=== PATIENT | female | born 1940 | race Caucasian/White ===

== ENCOUNTER 2024-03-07 13:54 | Inpatient (IN) ==
--- NOTE | 2024-03-07 14:02 | ED.PDOC ---
General ED Provider: Dr. RAPHAEL HANSEN MD Chief Complaint: Altered Mental Status Stated Complaint: Patient is an 84-year-old female that reported to the emergency department for a fall. Patient's family stated the patient was found down on her hands and knees. They did not know how long she had been down. She stated that she was going to the bathroom when she fell. They stated that the patient has been like this previously when she had a bad UTI. There is an unknown loss of consciousness. Patient denied any chest pain, shortness of breath, nausea, vomiting, diarrhea, abdominal pain, back pain, or any other acute symptoms not currently mentioned in the HPI. GCS 15 Time Seen by Provider: 03/07/24 13:56 Mode of Arrival: Wheelchair Information Source: Patient and Family Exam Limitations: No limitations Primary Care Provider: GOMEZ GRIMES MD Nursing and Triage Documentation Reviewed and Agree: Yes Does Patient Take Opioids?: No Is Patient Opioid Naive?: No What is Opioid Naive?: *Opioid Naive implies the patient is not already taking opioids or not chronically receiving opioids on a daily basis. *PRN dosing is not "usually" associated with tolerance. *Patients are at higher risk of over-sedation and aspiration. Is Patient Opioid Tolerant?: No What is Opioid Tolerant?: *Opioid Tolerance implies less than the expected response to an opioid. *Acquired tolerance is defined by the patient taking 60mg of oral morphine daily (or equianalgesic dose of another opioid) for 1 week or more. *Often associated with chronic pain. *May take more than usual dose to achieve desired pain control. Review of Systems Review Of Systems Constitutional: Reports No symptoms Eyes: Reports No symptoms Ears, Nose, Mouth, Throat: Reports No symptoms Respiratory: Reports No symptoms Cardiac: Reports No symptoms GI: Reports No symptoms : Reports Dysuria Musculoskeletal: Reports No symptoms Skin: Reports No symptoms Neurological: Reports No symptoms Endocrine: Reports No symptoms Hematologic/Lymphatic: Reports No symptoms All Other Systems: Reviewed and Negative [facility] Medical History History of COVID-19 04/16 Z86.16 - Personal history of COVID-19 (ICD-10) Family History FATHER No problems noted. Mother Cancer Cardiac abnormality Social History Smoking and tobacco status: Former smoker How long ago did patient quit smokin years ago Alcohol intake: former Year quit: 1989 Substance use type: does not use Special karl needs: No Agree to transfusion: Yes Adopted: No Caregiver/support person: No Foster care: No Household members: children Housing: house Marital status: W / Lives independently: Yes Daycare: no daycare Number of children: 6 service: No custodial: No Current occupational status: retired Pets and animals: Yes History of recent travel: No Do you think of yourself as: straight/heterosexual Current gender identity: female Seatbelt use: always Drives intoxicated or rides with intoxicated electric truck driver: No Water heater temperature set < 120 degrees: Yes Working smoke detector in home: Yes Fire extinguisher in home: Yes Carbon monoxide detector in home: No Firearms in home: No Physical Exam Physical Exam Appearance: Reports Well-appearing, No pain distress and Well-nourished Ill-appearing: None Pain Distress: None Eyes: Reports BOBBY, EOMI and Conjunctiva clear ENT: Reports Ears normal, Nose normal and Oropharynx normal Neck: Supple Respiratory: Reports Airway patent, Breath sounds clear, Breath sounds equal and Respirations nonlabored Cardiovascular: Reports RRR, Pulses normal, No rub and No murmur GI/: Reports Soft, Nontender, No masses, Bowel sounds normal and No Organomegaly Musculoskeletal: Reports Normal strength, ROM intact, No edema and No calf tenderness Skin: Reports Warm, Dry and Normal color Neurological: Reports Sensation intact, Motor intact, Reflexes intact, Cranial nerves intact, Alert and Oriented Psychiatric: Reports Affect appropriate and Mood appropriate Course Course 03/07/24 14:52 03/07/24 14:52 Orders, Labs, Meds: Lab Review 03/07/24 03/07/24 03/07/24 14:49 14:52 15:45 WBC 6.39 RBC 3.82 L Hgb 11.8 L Hct 35.8 L MCV 93.7 MCH 30.9 MCHC 33.0 RDW Coeff of Mitali 13.2 Plt Count 197 Immature Gran % (Auto) 0.2 Neut % (Auto) 52.6 Lymph % (Auto) 34.4 [place] % (Auto) 10.6 H Eos % (Auto) 1.3 Baso % (Auto) 0.9 Neut # (Auto) 3.4 Lymph # (Auto) 2.2 [place] # (Auto) 0.7 Eos # (Auto) 0.1 Baso # (Auto) 0.1 Immature Gran # (Auto) 0.0 Puncture Site L bach Base Excess -1.2 O2 Saturation 98.7 H ABG pH 7.48 H ABG pCO2 30.0 L ABG pO2 113.0 H ABG HCO3 22.3 ABG Total CO2 23.2 Hemoglobin 1.3 Oxyhemoglobin 95.6 Carboxyhemoglobin 2.2 H Total Hemoglobin 12.3 FiO2 % 21.0 Sodium 138.2 Potassium 4.01 Chloride 108.4 H Carbon Dioxide 19.5 L Anion Gap 14.31 BUN 27.4 H Creatinine 1.06 Estimated GFR (MDRD) 50.00 BUN/Creatinine Ratio 25.84 Glucose 86.9 Lactic Acid 0.61 L Calcium 9.74 Total Bilirubin 0.40 AST 32.7 ALT 8.1 Alkaline Phosphatase 56.8 Total Creatine Kinase 43.3 Troponin I < 0.012 Total Protein 7.30 Albumin 4.60 Globulin 2.70 Albumin/Globulin Ratio 1.70 Urine Color Urine Clarity Urine pH Ur Specific [place] Urine Protein Urine Glucose (UA) Urine Ketones Urine Blood Urine Nitrite Urine Bilirubin Urine Urobilinogen Ur Leukocyte Esterase Urine Microscopic RBC Urine Microscopic WBC Ur Squamous Epith Cells Ur Renal Epithelial Cell Urine Bacteria SARS CoV-2 RNA Rapid SILVINA Negative 03/07/24 16:10 WBC RBC Hgb Hct MCV MCH MCHC RDW Coeff of Mitali Plt Count Immature Gran % (Auto) Neut % (Auto) Lymph % (Auto) [place] % (Auto) Eos % (Auto) Baso % (Auto) Neut # (Auto) Lymph # (Auto) [place] # (Auto) Eos # (Auto) Baso # (Auto) Immature Gran # (Auto) Puncture Site Base Excess O2 Saturation ABG pH ABG pCO2 ABG pO2 ABG HCO3 ABG Total CO2 Hemoglobin Oxyhemoglobin Carboxyhemoglobin Total Hemoglobin FiO2 % Sodium Potassium Chloride Carbon Dioxide Anion Gap BUN Creatinine Estimated GFR (MDRD) BUN/Creatinine Ratio Glucose Lactic Acid Calcium Total Bilirubin AST ALT Alkaline Phosphatase Total Creatine Kinase Troponin I Total Protein Albumin Globulin Albumin/Globulin Ratio Urine Color Yellow Urine Clarity Clear Urine pH 5.5 Ur Specific [place] 1.010 Urine Protein Negative Urine Glucose (UA) Negative Urine Ketones Negative Urine Blood Negative Urine Nitrite Positive H Urine Bilirubin Negative Urine Urobilinogen 0.2 Ur Leukocyte Esterase 1+ H Urine Microscopic RBC 2-5 Urine Microscopic WBC 10-20 Ur Squamous Epith Cells 0-2 Ur Renal Epithelial Cell 0-2 Urine Bacteria 2+ SARS CoV-2 RNA Rapid SILVINA Orders Category Date Time Status OBSERVATION [PLACE PATIENT OBSERVATION] .TO MEDSUR ADMISSION 03/07/24 16:22 Active (MONITORED BED) ABG DRAW REQUEST Stat CARDIO 03/07/24 14:35 Completed EKG-(ED ONLY) Stat CARDIO 03/07/24 13:56 Completed NPO REMINDER: IMAGING ONCE CARE 03/07/24 14:38 Completed NPO REMINDER: IMAGING ONCE CARE 03/07/24 14:41 Completed TELEMETRY MONITORING TELE CARE 03/07/24 16:22 Active [place] [ED CATHETER INSERTION AND CARE] .ONCE EMERGENCY 03/07/24 15:37 Active ABG COOX Stat LAB 03/07/24 14:49 Completed BLOOD CULTURE (ED ONLY) Stat LAB 03/07/24 15:00 Received CBC W/ AUTO DIFF Stat LAB 03/07/24 14:52 Completed CMP [COMPREHENSIVE METABOLIC PANEL] Stat LAB 03/07/24 14:52 Completed COVID [SARS COV-2 RNA RAPID SILVINA] Stat LAB 03/07/24 15:45 Completed CREATINE KINASE Stat LAB 03/07/24 14:52 Completed LACTIC ACID Stat LAB 03/07/24 14:52 Completed TROPONIN I Stat LAB 03/07/24 14:52 Completed URINALYSIS C & S IF INDICATED Stat LAB 03/07/24 16:10 Completed URINE CULTURE Stat LAB 03/07/24 16:29 Received Ceftriaxone 1 gm Vial [Rocephin 1 gm Vial] Meds 03/07/24 16:30 Once 1 gm IVP ONCE ONE Sodium Chloride 0.9% [Sodium Chloride] 1,000 ml Meds 03/07/24 13:[address] ABDOMEN/PELVIS W CONTRAST Stat RADS 03/07/24 14:[address] CERVICAL SPINE W/O CONTRAST Stat RADS 03/07/24 14:[address] CHEST W/CONTRAST Stat RADS 03/07/24 14:[address] HEAD W/O CONTRAST Stat RADS 03/07/24 14:35 Completed Medications Discontinued Medications Generic Name Dose Route Start Last Admin Trade Name Freq PRN Reason Stop Dose Admin Sodium Chloride 1,000 mls @ 1,000 mls/hr 03/07/24 13:57 03/07/24 15:35 Sodium Chloride IV 03/07/24 14:56 1,000 mls/hr BOLUS ONE Administration Vital Signs: Temp Pulse Resp BP Pulse Ox 03/07/24 14:18 98.0 F 63 20 175/91 H 98 Discharge Plan Discharge Patient Disposition: PLACED OBSERVATION Discharge Problem: AMS (altered mental status) Qualifiers: Altered mental status type: unspecified Qualified Code(s): R41.82 - Altered mental status, unspecified Fall Qualifiers: Encounter type: initial encounter Qualified Code(s): W19.XXXA - Unspecified fall, initial encounter Urinary tract infection Qualifiers: Urinary tract infection type: acute cystitis Hematuria presence: without hematuria Qualified Code(s): N30.00 - Acute cystitis without hematuria Did you review [place] RN ONCOLOGY CLINICAL for ALL controlled substances?: Not Applicable ED Provider: RAPHAEL HANSEN Condition: Stable Physician Progress Note: Patient is an 84-year-old female that reported to the emergency department for a fall. Patient's family stated the patient was found down on her hands and knees. They did not know how long she had been down. She stated that she was going to the bathroom when she fell. They stated that the patient has been like this previously when she had a bad UTI. There is an unknown loss of consciousness. Patient denied any chest pain, shortness of breath, nausea, vomiting, diarrhea, abdominal pain, back pain, or any other acute symptoms not currently mentioned in the HPI. -GCS 15. -Will order EKG, trop, CPK, UA, and baseline labs. -Due to patient's fall with unknown downtime will order CT of the head, CT cervical spine, CT chest with contrast, CT abdomen pelvis with contrast. -IV NS 1 L bolus. -EKG shows normal sinus rhythm with a rate of [address] elevations noted. Patient has a left axis deviation. EKG was interpreted by the ER physician. -Patient CBC shows anemia of chronic disease. H&H is hemoglobin 11.8 and hematocrit 35.8. Patient's CMP shows a's carbon dioxide of 19.5 and a BUN of 27. Patient appears to be dehydrated. -Patient's ABG shows a pH 7.48, pCO2 30, pO2 113, bicarb 22.3, carboxyhemoglobin slightly elevated at 2.2. I asked the family if the patient had any gas utilities or a gas heater on in the house and they stated that she does not have any of the above. Patient's son lives at the house with her and states that he has been completely fine. He stated that he has not left the house in 3 days and has been with her. -CT of the head shows no acute intercranial bleed or acute pathology. -CT of the cervical spine shows no acute fractures or dislocations. Degenerative joint disease noted. -CT of the chest shows No acute traumatic injury to the chest. -CT of the abdomen pelvis shows no acute traumatic abdominal changes. Moderate right hydronephrosis with no obstruction noted. Stable bilateral renal cyst noted.Small hiatal hernia present. -Patient has a leukocyte Estrace positive and nitrite positive urinary tract infection on UA. Will give IV Rocephin 1 g. -([id number]) spoke to hospitalist at [facility] who has agreed admit the patient for dehydration and altered mental status. The patient's vital signs are stable at time of admission for observation. Hospitalist has been made aware of current treatment.
[2024-03-07 14:55] LABS: ABG O2 HGB 95.6 % (95-100); ABG PH 7.48 (7.35-7.45); BEecf -1.2 (-2.0-3.0); COHb 2.2 (0.5-1.5); HCO3 22.3 (21-28); MetHb 1.3 (0-1.5); TCO2 23.2 (19-24); sO2 98.7 % (94-98); tHb 12.3 g/dl (11.7-17.4)
[2024-03-07 14:58] LABS: BASOPHILS # (AUTO) 0.1 K/uL (0-0.2); BASOPHILS % (AUTO) 0.9 % (0.0-3.0); EOSINOPHILS # (AUTO) 0.1 K/ul (0.0-0.7); EOSINOPHILS % (AUTO) 1.3 % (0.0-7.0); HEMATOCRIT 35.8 % (37.0-47.0); HEMOGLOBIN 11.8 g/dl (12.0-16.0); IMMATURE GRANULOCYTE % (AUTO) 0.2 % (0.0-5.0); LYMPHOCYTES # (AUTO) 2.2 K/uL (0.60-3.4); LYMPHOCYTES % (AUTO) 34.4 (10.0-50.0); MEAN CORPUSCULAR HEMOGLOBIN 30.9 pg (27.0-31.0); MEAN CORPUSCULAR VOLUME 93.7 fl (81.0-99.0); MONOCYTES # (AUTO) 0.7 K/uL (0.4-2.0); MONOCYTES % (AUTO) 10.6 (0-10); NEUTROPHILS # (AUTO) 3.4 K/ul (2.0-6.9); NEUTROPHILS % (AUTO) 52.6 % (42.2-75.2); PLATELET COUNT 197 10^3/uL (140-440); RDW COEFFICIENT OF VARIATION 13.2 % (11.6-14.8); RED BLOOD COUNT 3.82 10^6/ul (4.20-5.40); WHITE BLOOD COUNT 6.39 K/ul (4.6-10.2)
[2024-03-07 15:10] LABS: ALANINE AMINOTRANSFERASE 8.1 U/L (0-35); ALKALINE PHOSPHATASE 56.8 U/L (53-141); ASPARTATE AMINO TRANSFERASE 32.7 U/L (14-36); BLOOD UREA NITROGEN 27.4 mg/dL (7-17); CALCIUM 9.74 mg/dL (8.4-10.2); CARBON DIOXIDE 19.5 mmol/L (22-30.0); CHLORIDE 108.4 mmol/L (98-107); CREATINE KINASE 43.3 U/L (30-135); CREATININE 1.06 mg/dL (0.60-1.30); GLUCOSE 86.9 mg/dL (74-106); POTASSIUM 4.01 mmol/L (3.5-5.1); SODIUM 138.2 mmol/L (134.5-145)
[2024-03-07 15:23] LABS: TROPONIN I < 0.012 ng/ml (0.0000-0.120)
[2024-03-07] MEDS: SODIUM CHLORIDE 1,000 ML IV ONE (15:35)
--- NOTE | 2024-03-07 15:38 | CT ---
EXAM: BRAIN CT WITHOUT CONTRAST 03/07/2024 INDICATION: Altered mental status. COMPARISON: MRI brain 09/21/2021. TECHNIQUE: Unenhanced CT of the head was performed from the skull base to the vertex. FINDINGS: No intracranial hemorrhage or extra-axial collection. No mass, mass effect or midline shift. The rich -white matter differentiation is preserved. Cerebral volume loss. There are patchy subcortical and p eriventricular white matter hypodensities, most commonly seen in chronic white matter microvascular i schemic changes. The ventricles are normal in size for age. The basal cisterns are patent. Opacifi cation of the underpneumatized bilateral mastoid air cells. The orbits are unremarkable. The visuali zed osseous structures are unremarkable. Frontoparietal hyperostosis. IMPRESSION: - No acute intracranial hemorrhage or mass effect. MRI can be obtained for further evaluation as clin ically indicated. - Senescent changes. All CT scans are performed using dose optimization techniques as appropriate to the performed exam an d include at least one of the following: Automated exposure control, adjustment of the mA and/or kV according t o size, and the use of iterative reconstruction technique.
--- NOTE | 2024-03-07 15:40 | CT ---
EXAMINATION: CT CERVICAL SPINE WITHOUT CONTRAST HISTORY: Trauma. Neck pain. TECHNIQUE: Computed tomography (CT) of the cervical spine was performed according to standard protoco l without intravenous contrast.2-D coronal and sagittal reformatted images were obtained from the axi al source images. CT Dose Reduction Techniques Performed: Yes. Contrast Dose: None. COMPARISON: None. FINDINGS: Post-Surgical Changes/Hardware: None . Bones: No acute bony abnormality. No lytic or blastic lesion. The lateral masses of C1 are aligned on the lateral masses of C2. The atlantodental joint is within normal limits. The visualized calvarium is sclerotic appearing. Degenerative changes: Bones are osteopenic consistent with age. Multilevel mild bony endplate spurri ng. Alignment: Slight grade 1 posterior listhesis of C3 on C4 and C4 on C5. Discs: Multilevel loss of disc space height. Soft Tissues: Unremarkable. Lung apices: Unremarkable. Other: None. IMPRESSION: 1. No acute abnormality. The visualized calvarium appears sclerotic. Mild degenerative disc diseas e and spondylosis. All CT scans are performed using dose optimization techniques as appropriate to the performed exam an d include at least one of the following: Automated exposure control, adjustment of the mA and/or kV according t o size, and the use of iterative reconstruction technique.
--- NOTE | 2024-03-07 15:56 | CT ---
EXAM: CT CHEST WITH CONTRAST HISTORY: Fall COMPARISON: 02/22/2022 TECHNIQUE: Serial axial images of the chest were obtained after Omnipaque IV contrast was administ ered. These were obtained from the lung apices to the upper abdomen. FINDINGS: Vascular calcifications. The heart is enlarged. No pericardial effusion. No mediastinal or hilar lymphadenopathy by CT size criteria. No dense consolidation. No pleural effusion or pneumothorax. Dependent atelectasis. Please see report from CT abdomen pelvis obtained at the same time for description of findings in the upper abdomen. IMPRESSION: No acute traumatic injury to the chest. All CT scans are performed using dose optimization techniques as appropriate to the performed exam an d include at least one of the following: Automated exposure control, adjustment of the mA and/or kV according t o size, and the use of iterative reconstruction technique.
[2024-03-07 16:02] LABS: SARS COV-2 RNA RAPID NAAT NEGATIVE (NEGATIVE)
--- NOTE | 2024-03-07 16:11 | CT ---
EXAM: CT ABDOMEN WITH CONTRAST. CT PELVIS WITH CONTRAST. HISTORY: Fall. COMPARISON: 04/05/2023, 02/22/2022. TECHNIQUE: Multiple axial images of the abdomen and pelvis were obtained following intravenous admin istration of 100 mL Visipaque 320, low osmolar. Images were reformatted in the sagittal and coronal plane. FINDINGS: No acute abnormality identified in the lung bases. Degenerative changes present throughout the spine. There is no acute fracture. Liver, gallbladder, pancreas, spleen, adrenal glands are unremarkable. Stable bilateral renal cysts and some left renal cortical scarring. There is moderate right hydronep hrosis. No discrete source for obstruction identified. Bladder is normal. Uterus demonstrates normal contour. Small hiatal hernia present. There is no bowel obstruction. Appendix is normal. Diverticulosis not ed.. Atherosclerotic calcifications present without abdominal aortic aneurysm. There is no free fluid, fr ee air or lymphadenopathy. IMPRESSION: 1. No acute post-traumatic abnormality of the abdomen or pelvis. 2. Moderate right hydronephrosis without identifiable source of obstruction. Consider follow-up exc retory imaging. All CT scans are performed using dose optimization techniques as appropriate to the performed exam an d include at least one of the following: Automated exposure control, adjustment of the mA and/or kV according t o size, and the use of iterative reconstruction technique.
[2024-03-07 16:25] LABS: BILIRUBIN,URINE Negative (NEGATIVE); CLARITY,URINE Clear (CLEAR); COLOR,URINE Yellow (YELLOW); GLUCOSE, URINE (UA) Negative (NEGATIVE); KETONES,URINE Negative (NEGATIVE); LEUKOCYTE ESTERASE ,URINE 1+ (NEGATIVE); NITRITE,URINE Positive (NEGATIVE); PH,URINE 5.5 (5-9); PROTEIN,URINE Negative (NEGATIVE); URINE, BLOOD Negative (NEGATIVE); UROBILINOGEN,URINE 0.2 (0.2)
[2024-03-07 16:30] LABS: BACTERIA,URINE 2+ (NOT PRESENT); RENAL EPITHELIAL CELLS,URINE 0-2 (NOT PRESENT); SQUAMOUS EPITHELIAL CELL,UR 0-2 (0-5)
[2024-03-07] MEDS ORDERED: ZOFRAN 4 MG/2 ML IVP PRN (16:43)
[2024-03-07] MEDS ORDERED: VENTOLIN HFA IH PRN (16:45)
[2024-03-07] MEDS: ROCEPHIN 1 GM VIAL IVP ONE (16:55)
[2024-03-07 18:17] VITALS: BMI 36.1
[2024-03-07] MEDS: APRESOLINE PO SCH (20:10)
[2024-03-07] MEDS: SINEMET 25-100 PO SCH (20:11)
[2024-03-08 05:56] LABS: BASOPHILS # (AUTO) 0.1 K/uL (0-0.2); BASOPHILS % (AUTO) 0.7 % (0.0-3.0); EOSINOPHILS # (AUTO) 0.1 K/ul (0.0-0.7); EOSINOPHILS % (AUTO) 1.3 % (0.0-7.0); HEMATOCRIT 34.1 % (37.0-47.0); IMMATURE GRANULOCYTE % (AUTO) 0.1 % (0.0-5.0); LYMPHOCYTES # (AUTO) 1.8 K/uL (0.60-3.4); LYMPHOCYTES % (AUTO) 24.6 (10.0-50.0); MEAN CORPUSCULAR HEMOGLOBIN 30.1 pg (27.0-31.0); MEAN CORPUSCULAR HGB CONC 32.3 (31.8-35.4); MEAN CORPUSCULAR VOLUME 93.2 fl (81.0-99.0); MONOCYTES # (AUTO) 0.7 K/uL (0.4-2.0); NEUTROPHILS # (AUTO) 4.8 K/ul (2.0-6.9); NEUTROPHILS % (AUTO) 64.3 % (42.2-75.2); PLATELET COUNT 191 10^3/uL (140-440); RDW COEFFICIENT OF VARIATION 13.1 % (11.6-14.8); RED BLOOD COUNT 3.66 10^6/ul (4.20-5.40); WHITE BLOOD COUNT 7.41 K/ul (4.6-10.2)
[2024-03-08] MEDS: SYNTHROID PO SCH (05:58)
[2024-03-08] MEDS: PRILOSEC PO SCH (05:58)
[2024-03-08 06:19] LABS: ALANINE AMINOTRANSFERASE 6.1 U/L (0-35); ALKALINE PHOSPHATASE 47.1 U/L (53-141); ASPARTATE AMINO TRANSFERASE 31.1 U/L (14-36); BILIRUBIN,TOTAL 0.48 mg/dL (0.2-1.3); BLOOD UREA NITROGEN 21.1 mg/dL (7-17); CALCIUM 9.22 mg/dL (8.4-10.2); CARBON DIOXIDE 24.3 mmol/L (22-30.0); CHLORIDE 107.2 mmol/L (98-107); CREATININE 0.9 mg/dL (0.60-1.30); GLUCOSE 78.2 mg/dL (74-106); POTASSIUM 3.81 mmol/L (3.5-5.1); SODIUM 137.7 mmol/L (134.5-145); TOTAL PROTEIN 6.65 g/dL (6.3-8.2)
[2024-03-08] MEDS: VESICARE PO SCH (08:46)
[2024-03-08] MEDS: NORVASC PO SCH (08:46)
[2024-03-08] MEDS: MIRALAX PO SCH (08:48)
[2024-03-08] MEDS: CRESTOR PO SCH (08:48)
[2024-03-08] MEDS: FERROUS SULFATE PO SCH (08:49)
[2024-03-08] MEDS: ROCEPHIN 1 GM/50 ML D5W 1 GM/50 ML BAG IV SCH (08:53)
[2024-03-08] MEDS ORDERED: PRILOSEC PO SCH (09:00)
--- NOTE | 2024-03-08 09:33 | RS.PTINEVL ---
Subjective Patient information Date of Evaluation: 03/08/24 Date of Arrival on Unit: 03/07/24 Admitted From:: Home Diagnosis: s/p fall, Alt mental status, UTI Usual Living Arrangement: Oldest son lives with patient Home Environment: House, Stairs (few) (4 steps w handrail) and Rail Medical History: Hypertension and COPD Medical History Comments:: Left ventricular hypertrophy, parkinson's disease, CAD, atrophy L kidney, GERD, hypothyroidism, LATEX ALLERGY?: No Medications: see chart Subjective Information/ Patient Comments:: pt states that she walks at home fine without AD but just "passed out". pt states "how much of this therapy do I have to do?" Level of function Prior to this admission, the patient could do the following:: Independent Selfcare, Independent ADL's, Independent Ambulation and Perform Trumpet Player/Cooking Current Level of Function: Partially Dependent Current Equipment Used at Home: BSC; W/C; Walker; over bed table Does not use any equipment but does have all available at home Interventions Objective Patient Orientation: Person, Place and Situation Current Interventions: IV's and Telemetry Observation: edema BLE Range of Motion ROM Right Upper Extremity AROM: WFL's Left Upper Extremity AROM: WFL's Right Lower Extremity AROM: WFL's Left Lower Extremity AROM: WFL's Muscle Strength Muscle Strength Right Upper Extremity: Mild Weakness (grossly 4/5 ) Left Upper Extremity: Mild Weakness (grossly 4/5 ) Right Lower Extremity: Mild Weakness (hip flex 4/5, knee flex 4/5, ext 4+/5, ankle DF/PF 4+/5) Left Lower Extremity: Mild Weakness (hip flex 4/5, knee flex 4/5, ext 4+/5, ankle DF/PF 4+/5) Sensation Sensation Right Upper Extremity: Intact/Normal Left Upper Extremity: Intact/Normal Right Lower Extremity: Intact/Normal Left Lower Extremity: Intact/Normal Palpation Palpation Findings: Tenderness (BLE) Balance Sitting Balance and Reactions Static Sitting Balance: Good (good-) Dynamic Sitting Balance: Fair (fair+) Standing Balance and Reactions Static Standing Balance: Fair Dynamic Standing Balance: Poor Functional Mobility Bed Mobility Rolling R/L: CGA Scooting: Min Assist and Mod Assist Supine to Sit: CGA and Min Assist Sit to Supine: Min Assist Transfers Sit to Stand: CGA Stand to Sit: CGA Safety Awareness Safety Awareness: Fair AVLARO INDEX SCORE: n/a Ambulation Ambulation Assistive Device Used: Rolling Walker Orthotic/Prosthetic Device: No Distance: 110ft Assistance needed with Ambulation: CGA Gait Deviations: Forward posture and Short stride Ambulation Comments: pt with slight increased lat sway Factors Affecting Ambulation: Decreased Balance, Weakness, Decreased Safety and Limited Endurance Treatment time Units charged Gait trainin Time with patient Length of Evaluation: 18 Total treatment time: 29 Patient Education Education Patient Education: Activity Modification and Education of Plan of Care Teaching Recipient: Patient and Family Teaching Methods: Discussion Comments: discussion regarding POC and dc planning Assessment Assessment Problem List:: Decreased level of function, Requires training/education, Decreased safety/Risk of falls and Weakness Rehab Potential: Good Further Therapy Indicated?: Yes Candidate for Swing Bed for Therapy Services?: Feel pt may not require swing bed for therapy would need to assess status after 3 day stay Evaluation Complexity: HISTORY: Medium, EXAM OF BODY SYSTEMS: Medium, CLINICAL PRESENTATION: Medium and CLINICAL DECISION MAKING: Medium Patient's Goal(s): Return home. Short Term Goals GOAL #1: pt demonstrate rolling and scooting in bed independently. Goal to be met by: 03/11/24 GOAL #2: Transfer sup to/from sit CGA Goal to be met by: 03/11/24 GOAL #3: Transfer sit to/from stand SBA Goal to be met by: 03/11/24 GOAL #4: pt amb with rwx 140ft with CGA to SBA no LOB Goal to be met by: 03/11/24 GOAL #5: Improve BLE Strength 4+/5 Goal to be met by: 03/11/24 GOAL #6: Improve dyn stand balance fair Goal to be met by: 03/12/24 [facility] Goals GOAL #1: pt transfer sup to/from sit to/from stand independently. Goal to be met by: 03/13/24 GOAL #2: pt amb functional household distances w/w/o AD SB to independent. Goal to be met by: 03/13/24 GOAL #3: pt ascend/descend 4 steps w handrail CGA Goal to be met by: 03/13/24 Plan Plan of Care: Therapeutic EX and Therapeutic Activity Other:: gait training Frequency of Treatment: 1-2 X day, as tolerated Duration of Treatment: 5 days Anticipated Discharge Destination: Home Treatment Diagnosis (ICD 10 Codes): gait difficulty R26.2 impaired balance R 26.81 weakness R53.1 fall Z91.81 Has the Physician been added for Co-signature?: Yes
--- NOTE | 2024-03-08 10:56 | PCM ---
Date of Service Date Seen by Provider: 03/08/24 Time Seen by Provider: 09:00 Admit Day/Time Admission Date: 03/07/24 Reason for Admission Chief Complaint: ALTERED MENTAL STATUS, DEHYDRATION Hospital Provider Hospital Provider: SHAYLA SHIPLEY, [facility] [place] Phys[place] Primary Care Physician: GOMEZ WILKINSON MD History of Present Illness History of Present Illness: 84 yo female presented to the ER with AMS. Family reports that son that lives with patient was gone to the post-office and found patient with her head laying on the bed and on her knees in the floor. Daughter reports she has had "fainting" spells in the past and no one will do anything to "figure that out". When asked, patient reported she was in the hospital for her fainting spells. She is oriented to person, place, and time. Denies feeling bad, denies any known fever, denies urinary symptoms. Daughter reports that when she got to the house patient was confused and didn't know what was going on. ER work-up showed dehydration and UTI. Admitted to med/surg observation. Case Discussed With Case Discussed With: Patient's case was discussed with the ER Physicians, Dr. Metz. [facility] Medical History History of COVID-19 04/16 Z86.16 - Personal history of COVID-19 (ICD-10) Family History FATHER No problems noted. Mother Cancer Cardiac abnormality Social History Smoking and tobacco status: Former smoker How long ago did patient quit smokin years ago Alcohol intake: former Year quit: 1989 Substance use type: does not use Special karl needs: No Agree to transfusion: Yes Adopted: No Caregiver/support person: No Foster care: No Household members: children Housing: house Marital status: W / Lives independently: Yes Daycare: no daycare Number of children: 6 service: No FPC: No Current occupational status: retired Pets and animals: Yes History of recent travel: No Do you think of yourself as: straight/heterosexual Current gender identity: female Seatbelt use: always Drives intoxicated or rides with intoxicated class c truck driver: No Water heater temperature set < 120 degrees: Yes Working smoke detector in home: Yes Fire extinguisher in home: Yes Carbon monoxide detector in home: No Firearms in home: No Allergies Allergies Allergy/AdvReac Type Severity Reaction Status Date / Time No Known Allergies Allergy Verified 03/07/24 14:32 Current Medications Home Medications albuterol sulfate 90 mcg/actuation aerosol inhaler 2 puff inhalation QID PRN shortness of air 10/09/21 [History Confirmed 03/07/24 Last Taken Unknown] carbidopa 25 mg-levodopa 100 mg tablet 1.5 tab PO TID 09/07/22 [History Conf irmed 03/07/24 Last Taken Unknown] cyanocobalamin (vitamin B-12) 2,500 mcg tablet 2,500 mcg PO QDAY 09/07/22 [History Confirmed 03/07/24 Last Taken Unknown] polyethylene glycol 3350 17 gram/dose oral powder 17 g PO QDAY 09/07/22 [History Confirmed 03/07/24 Last Taken Unknown] vitamin d 3 1 tab PO DAILY 09/07/22 [History Confirmed 03/07/24 Last Taken Unknown] nitroglycerin 0.4 mg sublingual tablet 0.4 mg sublingual Q5M PRN chest pain #50 tabs 11/15/22 [Rx Confirmed 03/07/24 Last Taken Unknown] omega 3-woc-imh-fish oil 100 mg-160 mg-1,000 mg capsule (Fish Oil) 1 cap PO DAILY 12/14/22 [History Confirmed 03/07/24 Last Taken Unknown] ferrous sulfate 325 mg (65 mg iron) tablet 325 mg PO QDAY #30 tabs 08/18/23 [Rx Confirmed 03/07/24 Last Taken Unknown] levothyroxine 100 mcg tablet See Rx Instructions .Route .COMPLEX #90 tabs 09/26/23 [Rx Confirmed 03/07/24 Last Taken Unknown] hydralazine 25 mg tablet See Rx Instructions .Route .COMPLEX #270 tabs 11/23/23 [Rx Confirmed 03/07/24 Last Taken Unknown] solifenacin 5 mg tablet See Rx Instructions .Route .COMPLEX #90 tabs 11/23/23 [Rx Confirmed 03/07/24 Last Taken Unknown] furosemide 20 mg tablet See Rx Instructions .Route .COMPLEX #90 tabs 11/29/23 [Rx Confirmed 03/07/24 Last Taken Unknown] amlodipine 5 mg tablet 5 mg PO QDAY #90 tabs 12/20/23 [Rx Confirmed 03/07/24 Last Taken Unknown] omeprazole 20 mg capsule,delayed release See Rx Instructions .Route .COMPLEX #90 caps 12/26/23 [Rx Confirmed 03/07/24 Last Taken Unknown] rosuvastatin 20 mg tablet See Rx Instructions .Route .COMPLEX #90 tabs 12/26/23 [Rx Confirmed 03/07/24 Last Taken Unknown] Home Albuterol Sulfate (Albuterol Sulfate 8 Gm Inhaler) 2 puff IH QID PRN PRN Reason: shortness of breath Amlodipine Besylate (Amlodipine Besylate 5 Mg Tablet) 5 mg PO DAILY ON LICENSE OF [facility] Last Admin: 03/08/24 08:46 Dose: 5 mg Carbidopa/Levodopa (Carbidopa/Levodopa 25/100 Tablet) 1.5 tab PO TID ON LICENSE OF [facility] Last Admin: 03/08/24 08:47 Dose: 1.5 tab Ferrous Sulfate (Ferrous Sulfate 324 Mg Tablet.) 324 mg PO DAILY ON LICENSE OF [facility] Last Admin: 03/08/24 08:49 Dose: 324 mg Hydralazine HCl (Hydralazine Hcl 50 Mg Tablet) 25 mg PO TID ON LICENSE OF [facility] Last Admin: 03/08/24 08:47 Dose: 25 mg CEFTRIAXONE/D5W 1 GM PREMIX (Rocephin 1 Gm/50 Ml D5w) 1 gm in 50 mls @ 75 mls/hr IV DAILY ON LICENSE OF [facility] Stop: 03/11/24 08:59 Last Admin: 03/08/24 08:53 Dose: 75 mls/hr Levothyroxine Sodium (Levothyroxine Sodium 100 Mcg Tablet) 100 mcg PO DAILY@0630 ON LICENSE OF [facility] Last Admin: 03/08/24 05:58 Dose: 100 mcg Omeprazole (Omeprazole 20 Mg Capsule.) 20 mg PO QDAC2 ON LICENSE OF [facility] Last Admin: 03/08/24 05:58 Dose: 20 mg Ondansetron HCl (Ondansetron Hcl/Pf 4 Mg/2 Ml Sdv) 4 mg IVP Q6H PRN PRN Reason: Nausea / Vomiting Polyethylene Glycol (Polyethylene Glycol 17 Gm Powd.Pack) 17 gm PO DAILY ON LICENSE OF [facility] Last Admin: 03/08/24 08:48 Dose: 17 gm Rosuvastatin Calcium (Rosuvastatin Calcium 10 Mg Tablet) 20 mg PO DAILY ON LICENSE OF [facility] Last Admin: 03/08/24 08:48 Dose: 20 mg Sodium Chloride (0.9% Sodium Chloride 10 Ml Disp.Syrin) 1 syr IVF Q8HR ON LICENSE OF [facility] Last Admin: 03/08/24 05:58 Dose: 1 syr Solifenacin (Solifenacin Succinate 5 Mg Tablet) 5 mg PO DAILY ON LICENSE OF [facility] Last Admin: 03/08/24 08:46 Dose: 5 mg Discontinued Medications Ceftriaxone Sodium (Ceftriaxone 1 Gm Vial) 1 gm IVP ONCE ONE Stop: 03/07/24 16:31 Last Admin: 03/07/24 16:55 Dose: 1 gm Sodium Chloride (Sodium Chloride) 1,000 mls @ 1,000 mls/hr IV BOLUS ONE Stop: 03/07/24 14:56 Last Infusion: 03/07/24 16:54 Dose: Infused Omeprazole (Omeprazole 20 Mg Capsule.Dr) 20 mg PO DAILY ON LICENSE OF [facility] Opioid Naive vs. Tolerant Does Patient Take Opioids?: No Is Patient Opioid Naive?: Yes What is Opioid Naive?: *Opioid Naive implies the patient is not already taking opioids or not chronically receiving opioids on a daily basis. *PRN dosing is not "usually" associated with tolerance. *Patients are at higher risk of over-sedation and aspiration. Is Patient Opioid Tolerant?: No What is Opioid Tolerant?: *Opioid Tolerance implies less than the expected response to an opioid. *Acquired tolerance is defined by the patient taking 60mg of oral morphine daily (or equianalgesic dose of another opioid) for 1 week or more. *Often associated with chronic pain. *May take more than usual dose to achieve desired pain control. Review of Systems Constitutional: Reports No symptoms Head: Reports Normocephalic Eyes: Reports No symptoms Ears: Reports No symptoms Nose: Reports No symptoms Mouth: Reports No symptoms Throat: Reports No symptoms Cardiovascular: Reports No symptoms Respiratory: Reports No symptoms Gastrointestinal: Reports No symptoms Genitourinary: Reports No Symptoms Musculoskeletal: Reports No symptoms Endocrine: Reports No symptoms Hematology: Reports No symptoms Immunology: Reports No symptoms Neurological: Reports Other (confusion) Psychiatric: Reports No symptoms Physical examination Most Recent Vital Signs: Most Recent Vital Signs Temperature 98.2 F 03/08/24 10:00 Temperature Source Temporal Artery Scan 03/08/24 10:00 Temperature Source Oral 03/07/24 14:18 Pulse Rate 61 03/08/24 10:00 Respiratory Rate 17 03/08/24 10:00 Blood Pressure 121/69 03/08/24 10:00 Blood Pressure Mean 86 03/08/24 10:00 Blood Pressure Left Arm 161/83 03/07/24 17:30 Blood Pressure Location Left Arm 03/08/24 10:00 Blood Pressure Position Sitting 03/08/24 10:00 O2 Sat by Pulse Oximetry 95 03/08/24 10:00 Oxygen Delivery Method Room Air 03/08/24 10:00 Height 5 ft 0.75 in 03/07/24 17:30 Weight 86.2 kg 03/07/24 17:30 Telemetry Type Remote Telemetry 03/08/24 01:00 Telemetry Monitoring Continues 03/08/24 01:00 Telemetry Heart Rate 57 L 03/08/24 01:00 EKG WV Interval 0.25 H 03/08/24 01:00 EKG QRS Interval 0.04 L 03/08/24 01:00 Telemetry Strip Reading SR WITH 1ST DEGREE AVB 03/08/24 01:00 Appearance: Positive No Apparent Distress, Alert and Oriented x3 and Obese Skin: Positive Warm and Good Turgor HEENT: Positive Normocephalic and PERRLA Neck: Positive Supple and Midline Trachea Chest/Lungs: Positive Symmetrical With Equal Breath Sounds, Clear to Auscultation Bilaterally and Good Air Movement all 4 Lung [place] Heart: Positive RRR and Pulses Normal GI/: Positive Soft, Nontender, Bowel Sounds Normal and No Distention Musculoskeletal: Positive Not Examined Extremities: Positive Intact Peripheral Pulses and Good ROM in All Joints Neurological: Positive Sensation Intact, Motor intact, Alert, Oriented and Other (generalized weakness) Labs This Visit Labs This Visit: Labs This Visit 03/07/24 03/07/24 03/07/24 14:49 14:52 15:45 WBC 6.39 RBC 3.82 L Hgb 11.8 L Hct 35.8 L MCV 93.7 MCH 30.9 MCHC 33.0 RDW Coeff of Mitali 13.2 Plt Count 197 Immature Gran % (Auto) 0.2 Neut % (Auto) 52.6 Lymph % (Auto) 34.4 Long % (Auto) 10.6 H Eos % (Auto) 1.3 Baso % (Auto) 0.9 Neut # (Auto) 3.4 Lymph # (Auto) 2.2 Long # (Auto) 0.7 Eos # (Auto) 0.1 Baso # (Auto) 0.1 Immature Gran # (Auto) 0.0 Puncture Site L bach Base Excess -1.2 O2 Saturation 98.7 H ABG pH 7.48 H ABG pCO2 30.0 L ABG pO2 113.0 H ABG HCO3 22.3 ABG Total CO2 23.2 Hemoglobin 1.3 Oxyhemoglobin 95.6 Carboxyhemoglobin 2.2 H Total Hemoglobin 12.3 FiO2 % 21.0 Sodium 138.2 Potassium 4.01 Chloride 108.4 H Carbon Dioxide 19.5 L Anion Gap 14.31 BUN 27.4 H Creatinine 1.06 Estimated GFR (MDRD) 50.00 BUN/Creatinine Ratio 25.84 Glucose 86.9 Lactic Acid 0.61 L Calcium 9.74 Total Bilirubin 0.40 AST 32.7 ALT 8.1 Alkaline Phosphatase 56.8 Total Creatine Kinase 43.3 Troponin I < 0.012 Total Protein 7.30 Albumin 4.60 Globulin 2.70 Albumin/Globulin Ratio 1.70 Urine Color Urine Clarity Urine pH Ur Specific Evans Urine Protein Urine Glucose (UA) Urine Ketones Urine Blood Urine Nitrite Urine Bilirubin Urine Urobilinogen Ur Leukocyte Esterase Urine Microscopic RBC Urine Microscopic WBC Ur Squamous Epith Cells Ur Renal Epithelial Cell Urine Bacteria SARS CoV-2 RNA Rapid SILVINA Negative 03/07/24 03/08/24 16:10 05:12 WBC 7.41 RBC 3.66 L Hgb 11.0 L Hct 34.1 L MCV 93.2 MCH 30.1 MCHC 32.3 RDW Coeff of Mitali 13.1 Plt Count 191 Immature Gran % (Auto) 0.1 Neut % (Auto) 64.3 Lymph % (Auto) 24.6 Long % (Auto) 9.0 Eos % (Auto) 1.3 Baso % (Auto) 0.7 Neut # (Auto) 4.8 Lymph # (Auto) 1.8 Long # (Auto) 0.7 Eos # (Auto) 0.1 Baso # (Auto) 0.1 Immature Gran # (Auto) 0.0 Puncture Site Base Excess O2 Saturation ABG pH ABG pCO2 ABG pO2 ABG HCO3 ABG Total CO2 Hemoglobin Oxyhemoglobin Carboxyhemoglobin Total Hemoglobin FiO2 % Sodium 137.7 Potassium 3.81 Chloride 107.2 H Carbon Dioxide 24.3 Anion Gap 10.01 BUN 21.1 H Creatinine 0.90 Estimated GFR (MDRD) 60.00 BUN/Creatinine Ratio 23.44 Glucose 78.2 Lactic Acid Calcium 9.22 Total Bilirubin 0.48 AST 31.1 ALT 6.1 Alkaline Phosphatase 47.1 L Total Creatine Kinase Troponin I Total Protein 6.65 Albumin 4.00 Globulin 2.65 Albumin/Globulin Ratio 1.50 Urine Color Yellow Urine Clarity Clear Urine pH 5.5 Ur Specific Evans 1.010 Urine Protein Negative Urine Glucose (UA) Negative Urine Ketones Negative Urine Blood Negative Urine Nitrite Positive H Urine Bilirubin Negative Urine Urobilinogen 0.2 Ur Leukocyte Esterase 1+ H Urine Microscopic RBC 2-5 Urine Microscopic WBC 10-20 Ur Squamous Epith Cells 0-2 Ur Renal Epithelial Cell 0-2 Urine Bacteria 2+ SARS CoV-2 RNA Rapid SILVINA Microbiology This Visit 03/07/24 16:29 Urine,Random Urine Culture - Preliminary Imaging Imaging: EXAM: BRAIN CT WITHOUT CONTRAST 03/07/2024 FINDINGS: No intracranial hemorrhage or extra-axial collection. No mass, mass effect or midline shift. The rich-white matter differentiation is preserved. Cerebral volume loss. There are patchy subcortical and periventricular white matter hypodensities, most commonly seen in chronic white matter microvascular ischemic changes. The ventricles are normal in size for age. The basal cisterns are patent. Opacification of the underpneumatized bilateral mastoid air cells. The orbits are unremarkable. The visualized osseous structures are unremarkable. Frontoparietal hyperostosis. IMPRESSION: - No acute intracranial hemorrhage or mass effect. MRI can be obtained for further evaluation as clinically indicated. - Senescent changes. EXAM: CT CHEST WITH CONTRAST FINDINGS: Vascular calcifications. The heart is enlarged. No pericardial effusion. No mediastinal or hilar lymphadenopathy by CT size criteria. No dense consolidation. No pleural effusion or pneumothorax. Dependent atelectasis. Please see report from CT abdomen pelvis obtained at the same time for description of findings in the upper abdomen. IMPRESSION: No acute traumatic injury to the chest. EXAM: CT ABDOMEN WITH CONTRAST. CT PELVIS WITH CONTRAST. FINDINGS: No acute abnormality identified in the lung bases. Degenerative changes present throughout the spine. There is no acute fracture. Liver, gallbladder, pancreas, spleen, adrenal glands are unremarkable. Stable bilateral renal cysts and some left renal cortical scarring. There is moderate right hydronephrosis. No discrete source for obstruction identified. Bladder is normal. Uterus demonstrates normal contour. Small hiatal hernia present. There is no bowel obstruction. Appendix is normal. Diverticulosis noted.. Atherosclerotic calcifications present without abdominal aortic aneurysm. There is no free fluid, free air or lymphadenopathy. IMPRESSION: 1. No acute post-traumatic abnormality of the abdomen or pelvis. 2. Moderate right hydronephrosis without identifiable source of obstruction. Consider follow-up excretory imaging. Review Statement Review Statement: I have independently reviewed and interpreted the labs/EKGs/imaging that were ordered by the ER provider. I have reviewed all outside records that are available currently in our EMR including imaging/notes/labs from previous visits. Plan Plan: 1. UTI - gram negative rods on culture, awaiting sensitivity, rocephin 1G Q24H 2. Acute Metabolic Encephalopathy in setting of UTI - Improving, avoid neurologically altering agents, monitor 3. Dehydration, mild - received IV fluids in the ER, improved 4. COPD - chronic, not exacerbation, continue home medications 5. Hypertension - chronic, continue home medications DVT Prophylaxis: Ambulation Time Spent: Greater than 80 minutes spent with patient, 50% of the time spent with this patient was devoted to counseling and coordination of care. [facility]in minutes spent discussing advance care planning. Disposition: Admit to: Med/Surg Observation DNI, CPR only Discussed Plan of Care with Dr. Ana Wilkinson. Medications Medication Orders: Medications Ordered Category Date Time Status 0.9 % Sodium Chloride [Saline Flush] Meds 03/08/24 05:35 Active 1 syr IVF Q8HR Albuterol Sulfate [Ventolin Hfa] Meds 03/07/24 16:45 Active 2 puff IH QID PRN Amlodipine Besylate [Norvasc] Meds 03/08/24 09:00 Active 5 mg PO DAILY Carbidopa/Levodopa [Sinemet 25-100] Meds 03/07/24 21:00 Active 1.5 tab PO TID Ceftriaxone/D5w 1 gm Premix [Rocephin 1 gm/50 ml D5w] Meds 03/08/24 09:00 Active 1 gm in 50 ml IV DAILY Ferrous Sulfate Meds 03/08/24 09:00 Active 324 mg PO DAILY Hydralazine HCl [Apresoline] Meds 03/07/24 21:00 Active 25 mg PO TID Levothyroxine Sodium [Synthroid] Meds 03/08/24 06:30 Active 100 mcg PO DAILY@0630 Omeprazole [Prilosec] Meds 03/08/24 06:00 Active 20 mg PO QDAC2 Ondansetron HCl/Pf [Zofran 4 mg/2 ml] Meds 03/07/24 16:43 Active 4 mg IVP Q6H PRN Polyethylene Glycol 3350 [Miralax] Meds 03/08/24 09:00 Active 17 gm PO DAILY Rosuvastatin Calcium [Crestor] Meds 03/08/24 09:00 Active 20 mg PO DAILY Solifenacin Succinate [Vesicare] Meds 03/08/24 09:00 Active 5 mg PO DAILY
[2024-03-09 05:00] LABS: BASOPHILS # (AUTO) 0.1 K/uL (0-0.2); BASOPHILS % (AUTO) 0.7 % (0.0-3.0); EOSINOPHILS # (AUTO) 0.1 K/ul (0.0-0.7); EOSINOPHILS % (AUTO) 1.3 % (0.0-7.0); HEMATOCRIT 33.9 % (37.0-47.0); HEMOGLOBIN 10.9 g/dl (12.0-16.0); IMMATURE GRANULOCYTE % (AUTO) 0.3 % (0.0-5.0); LYMPHOCYTES # (AUTO) 1.8 K/uL (0.60-3.4); LYMPHOCYTES % (AUTO) 25.6 (10.0-50.0); MEAN CORPUSCULAR HEMOGLOBIN 30.1 pg (27.0-31.0); MEAN CORPUSCULAR HGB CONC 32.2 (31.8-35.4); MEAN CORPUSCULAR VOLUME 93.6 fl (81.0-99.0); MONOCYTES # (AUTO) 0.7 K/uL (0.4-2.0); MONOCYTES % (AUTO) 9.8 (0-10); NEUTROPHILS # (AUTO) 4.3 K/ul (2.0-6.9); NEUTROPHILS % (AUTO) 62.3 % (42.2-75.2); PLATELET COUNT 178 10^3/uL (140-440); RDW COEFFICIENT OF VARIATION 13.2 % (11.6-14.8); RED BLOOD COUNT 3.62 10^6/ul (4.20-5.40); WHITE BLOOD COUNT 6.87 K/ul (4.6-10.2)
[2024-03-09 05:13] LABS: ALANINE AMINOTRANSFERASE 8.4 U/L (0-35); ALBUMIN 4.08 g/dL (3.5-5.0); ALKALINE PHOSPHATASE 53.5 U/L (53-141); ASPARTATE AMINO TRANSFERASE 26.5 U/L (14-36); BILIRUBIN,TOTAL 0.46 mg/dL (0.2-1.3); BLOOD UREA NITROGEN 20.2 mg/dL (7-17); CALCIUM 9.69 mg/dL (8.4-10.2); CARBON DIOXIDE 24.9 mmol/L (22-30.0); CHLORIDE 107.9 mmol/L (98-107); CREATININE 0.83 mg/dL (0.60-1.30); GLUCOSE 87.9 mg/dL (74-106); POTASSIUM 4.22 mmol/L (3.5-5.1); SODIUM 137.2 mmol/L (134.5-145); TOTAL PROTEIN 6.7 g/dL (6.3-8.2)
[2024-03-09] MEDS: SINEMET 25-100 PO SCH (08:57)
[2024-03-09] MEDS: ROCEPHIN 1 GM/50 ML D5W 1 GM/50 ML BAG IV SCH (09:00)
--- NOTE | 2024-03-09 09:50 | DCSUM ---
Admission Date Admission Date: 03/08/24 Discharge Date Discharge Date: 03/09/24 Admission Diagnosis Admission Diagnosis: 1. UTI 2. Acute Metabolic Encephalopathy in setting of UTI 3. Dehydration, mild 4. COPD 5. Hypertension Discharge Diagnosis Discharge Diagnosis: 1. UTI - Improving, E.coli on culture 2. Acute Metabolic Encephalopathy in setting of UTI - Resolved 3. Dehydration, mild - Resolved 4. COPD - chronic, stable 5. Hypertension - chronic, stable Hospital Provider Hospital Provider: SHAYLA SHIPLEY, [facility] [place] Primary Care Physician Primary Care Physician: GOMEZ GRIMES MD Summary of History and Physical Summary of History and Physical: 84 yo female presented to the ER with AMS. Family reports that son that lives with patient was gone to the post-office and found patient with her head laying on the bed and on her knees in the floor. Daughter reports she has had "fainting" spells in the past and no one will do anything to "figure that out". When asked, patient reported she was in the hospital for her fainting spells. She is oriented to person, place, and time. Denies feeling bad, denies any known fever, denies urinary symptoms. Daughter reports that when she got to the house patient was confused and didn't know what was going on. ER work-up showed dehydration and UTI. Admitted to med/surg observation. Hospital Course Subjective: During stay, patient was treated for UTI with rocephin 1G Q24H. Urine culture final report showed E. Coli ESBL negative. D/c with Rx for keflex 500 mg bid x 5 days for 7 day course. Nursing staff notified that patient HR running in upper 40s at times. Patient asymptomatic. No confusion or dizziness. Patient reported increase in carbidopa/levidopa in the last 6 months from 1 tab to 1.5 tabs. Decreased dose to trial if it is affecting HR. Patient has not been confused or had any other "fainting spells" during stay. No further changes to home medications. Offered PT/OT referral. Patient and family did not deem this to be necessary at this time. Follow-up with PCP next week. Appearance: Pleasant, No Apparent Distress and Alert Vital Signs: Most Recent Vital Signs Temperature 97.9 F 03/09/24 05:11 Temperature Source Temporal Artery Scan 03/09/24 05:11 Temperature Source Oral 03/07/24 14:18 Pulse Rate 47 L 03/09/24 05:11 Respiratory Rate 16 03/09/24 05:11 Blood Pressure 136/76 03/09/24 05:11 Blood Pressure Mean 96 03/09/24 05:11 Blood Pressure Left Arm 161/83 03/07/24 17:30 Blood Pressure Location Right Arm 03/09/24 05:11 Blood Pressure Position Sitting 03/09/24 05:11 O2 Sat by Pulse Oximetry 96 03/09/24 05:11 Oxygen Delivery Method Room Air 03/09/24 05:11 Height 5 ft 0.75 in 03/07/24 17:30 Weight 86.2 kg 03/07/24 17:30 Telemetry Type Remote Telemetry 03/09/24 07:00 Telemetry Monitoring Continues 03/09/24 07:00 Telemetry Heart Rate 63 03/09/24 07:00 EKG OH Interval 0.20 03/09/24 07:00 EKG QRS Interval 0.08 03/09/24 07:00 Telemetry Strip Reading sr 03/09/24 07:00 Imaging: EXAM: BRAIN CT WITHOUT CONTRAST 03/07/2024 INDICATION: Altered mental status. COMPARISON: MRI brain 09/21/2021. TECHNIQUE: Unenhanced CT of the head was performed from the skull base to the vertex. FINDINGS: No intracranial hemorrhage or extra-axial collection. No mass, mass effect or midline shift. The rich-white matter differentiation is preserved. Cerebral volume loss. There are patchy subcortical and periventricular white matter hyp odensities, most commonly seen in chronic white matter microvascular ischemic changes. The ventricles are normal in size for age. The basal cisterns are patent. Opacification of the underpneumatized bilateral mastoid air cells. The orbits are unremarkable. The visualized osseous structures are unremarkable. Frontoparietal hyperostosis. IMPRESSION: - No acute intracranial hemorrhage or mass effect. MRI can be obtained for further evaluation as clinically indicated. - Senescent changes. Lab Results Last 24 Hours: 03/09/24 04:55 WBC 6.87 RBC 3.62 L Hgb 10.9 L Hct 33.9 L MCV 93.6 MCH 30.1 MCHC 32.2 RDW Coeff of Mitali 13.2 Plt Count 178 Immature Gran % (Auto) 0.3 Neut % (Auto) 62.3 Lymph % (Auto) 25.6 [place] % (Auto) 9.8 Eos % (Auto) 1.3 Baso % (Auto) 0.7 Neut # (Auto) 4.3 Lymph # (Auto) 1.8 [place] # (Auto) 0.7 Eos # (Auto) 0.1 Baso # (Auto) 0.1 Immature Gran # (Auto) 0.0 Sodium 137.2 Potassium 4.22 Chloride 107.9 H Carbon Dioxide 24.9 Anion Gap 8.62 BUN 20.2 H Creatinine 0.83 Estimated GFR (MDRD) 66.00 BUN/Creatinine Ratio 24.33 Glucose 87.9 Calcium 9.69 Total Bilirubin 0.46 AST 26.5 ALT 8.4 Alkaline Phosphatase 53.5 Total Protein 6.70 Albumin 4.08 Globulin 2.62 Albumin/Globulin Ratio 1.55 Discharge Instructions Discharge Planning: Discharge Planning > 40 minutes If patient is discharged with left ventricular systolic dysfunction: NA Discharged with a beta ilana? [] If no, why not? [] Discharged with an divya/arb? [] If no, why not? [] Discharge Home today; Saturday March 09, 2024 Diagnosis: UTI Diet: Cardiac diet Activity as tolerated; Follow Fall Precautions Follow-up with Primary Care Provider next week; call for appointment New Medication/Medication changes: Decrease carbidopa/levodopa to 1 tab instead of 1.5 Keflex 500 mg twice a day for 5 days for Urinary Tract Infection Continue your other medications as taking before Discharge Medications: Medications at Discharge (Home Meds & RX) albuterol sulfate 90 mcg/actuation aerosol inhaler 2 puff inhalation QID PRN shortness of air 10/09/21 carbidopa 25 mg-levodopa 100 mg tablet 1.5 tab PO TID 09/07/22 cyanocobalamin (vitamin B-12) 2,500 mcg tablet 2,500 mcg PO QDAY 09/07/22 polyethylene glycol 3350 17 gram/dose oral powder 17 g PO QDAY 09/07/22 vitamin d 3 1 tab PO DAILY 09/07/22 nitroglycerin 0.4 mg sublingual tablet 0.4 mg sublingual Q5M PRN chest pain #50 tabs 11/15/22 omega 2-fju-kvk-fish oil 100 mg-160 mg-1,000 mg capsule (Fish Oil) 1 cap PO DAILY 12/14/22 ferrous sulfate 325 mg (65 mg iron) tablet 325 mg PO QDAY #30 tabs 08/18/23 levothyroxine 100 mcg tablet See Rx Instructions .Route .COMPLEX #90 tabs 09/26/23 hydralazine 25 mg tablet See Rx Instructions .Route .COMPLEX #270 tabs 11/23/23 solifenacin 5 mg tablet See Rx Instructions .Route .COMPLEX #90 tabs 11/23/23 furosemide 20 mg tablet See Rx Instructions .Route .COMPLEX #90 tabs 11/29/23 amlodipine 5 mg tablet 5 mg PO QDAY #90 tabs 12/20/23 omeprazole 20 mg capsule,delayed release See Rx Instructions .Route .COMPLEX #90 caps 12/26/23 rosuvastatin 20 mg tablet See Rx Instructions .Route .COMPLEX #90 tabs 12/26/23 Discharge Plan Discharge Discharge Orders: Discharge Patient (ONCE); Ordered 03/09/24 Ordered By: LEOLA SMALL Activity Restrictions/Additional Instructions: Discharge Home today; Saturday March 09, 2024 Diagnosis: UTI Diet: Cardiac diet Activity as tolerated; Follow Fall Precautions Follow-up with Primary Care Provider next week; call for appointment New Medication/Medication changes: Decrease carbidopa/levodopa to 1 tab instead of 1.5 Keflex 500 mg twice a day for 5 days for Urinary Tract Infection Continue your other medications as taking before Instructions: Cephalexin (By mouth), Urinary Tract Infection in Women (GEN), Heart Healthy Diet (DC), Fall Prevention for Older Adults (DC) Care Plan Goals: Problem: Infection Goal #1: No signs/symptoms of infection Instructions: Monitor for sign/symptoms of infection Monitor temperature Goal #2: White blood cell counts Within Normal Limits Instructions: Obtain labs per physician orders Problem: Risk for falls Goal: No falls or injury Instructions: Have no throw rugs on the floor Make sure pathway is clear of all objects Use assistance devices if applicable Patient Disposition: HOME WITH FAMILY CARE Prescriptions: New cephalexin 500 mg capsule 500 mg PO BID Qty: 10 0RF Continued nitroglycerin 0.4 mg tablet, sublingual 0.4 mg sublingual Q5M PRN (Reason: chest pain) Qty: 50 1RF Rx Instructions: do not exceed 3 doses per episode ferrous sulfate 325 mg (65 mg iron) tablet 325 mg PO QDAY Qty: 30 5RF levothyroxine 100 mcg tablet See Rx Instructions .ROUTE .COMPLEX Qty: 90 1RF Dose Instruction: Take 1 tablet by mouth once daily Rx Instructions: Take 1 tablet by mouth once daily hydralazine 25 mg tablet See Rx Instructions .ROUTE .COMPLEX Qty: 270 0RF Dose Instruction: TAKE 1 TABLET BY MOUTH THREE TIMES DAILY Rx Instructions: TAKE 1 TABLET BY MOUTH THREE TIMES DAILY solifenacin 5 mg tablet See Rx Instructions .ROUTE .COMPLEX Qty: 90 0RF Dose Instruction: Take 1 tablet by mouth once daily Rx Instructions: Take 1 tablet by mouth once daily furosemide 20 mg tablet See Rx Instructions .ROUTE .COMPLEX Qty: 90 0RF Dose Instruction: Take 1 tablet by mouth once daily Rx Instructions: Take 1 tablet by mouth once daily rosuvastatin 20 mg tablet See Rx Instructions .ROUTE .COMPLEX Qty: 90 0RF Dose Instruction: Take 1 tablet by mouth once daily Rx Instructions: Take 1 tablet by mouth once daily omeprazole 20 mg capsule,delayed release(DR/EC) See Rx Instructions .ROUTE .COMPLEX Qty: 90 0RF Dose Instruction: Take 1 capsule by mouth once daily Rx Instructions: Take 1 capsule by mouth once daily albuterol sulfate 90 mcg/actuation HFA aerosol inhaler 2 puff INHALATION QID PRN (Reason: shortness of air) Patient Comments: INHALE 2 PUFFS BY MOUTH 4 TIMES DAILY Fish Oil 100-160-1,000 mg capsule 1 cap PO DAILY amlodipine 5 mg tablet 5 mg PO QDAY Qty: 90 1RF vitamin d 3 1 tab PO DAILY cyanocobalamin (vitamin B-12) 2,500 mcg tablet 2,500 mcg PO QDAY polyethylene glycol 3350 17 gram/dose powder 17 g PO QDAY Changed carbidopa-levodopa 25-100 mg tablet 1 tab PO TID Qty: 90 0RF Did you review [place] [employer] for ALL controlled substances?: No Discussed opioids are addictive and Narcan is available by prescription or from pharmacy.: No Condition: Stable Referrals: GOMEZ GRIMES MD [Primary Care Provider] - 03/15/24 3:00 pm
[2024-03-09 10:42] VITALS: BP 150/86; PULSE 57; RESP 20; TEMP 98.5
== END 2024-03-09 10:55 | disposition home or self-care (01) | DRG 689 ==
LOC: ED 13:54 → MEDSURG B 13:54
PROVIDERS: ADMIT Hospitalist; ATTEND Nurse Practitioner Family